=== PATIENT | female | born 1950 | race Two or more races ===

== ENCOUNTER 2016-07-20 13:47 | Emergency (ER) | payer OTHER ==
[~2016-07-20] VITALS: Ht 149.9 cm; Wt 68.0 kg
[2016-07-20] MEDS ORDERED: IBUPROFEN 600 MG TABLET PO ONE (16:27)
[2016-07-20] MEDS ORDERED: CYCLOBENZAPRINE 10 MG TABLET ONE (16:27)
[2016-07-20] MEDS: IBUPROFEN 600 MG TABLET PO ONE (16:30)
[2016-07-20] MEDS: CYCLOBENZAPRINE 10 MG TABLET PO ONE (16:31)
[2016-07-20 19:50] VITALS: BP 138/84
== END 2016-07-20 19:52 | disposition home or self-care (01) ==
LOC: ER 13:52
DX: M51.37 Other intervertebral disc degeneration, lumbosacral region (principal); M19.90 Unspecified osteoarthritis, unspecified site; M25.561 Pain in right knee; Z88.1 Allergy status to other antibiotic agents; Z88.5 Allergy status to narcotic agent; Z88.6 Allergy status to analgesic agent; E78.00 Pure hypercholesterolemia, unspecified; I10 Essential (primary) hypertension
CPT/HCPCS: 72131; 73564; 99284; A4606; Z7610